=== PATIENT | male | born 1960 | race Caucasian/White ===

== ENCOUNTER 2017-03-14 23:16 | Emergency (ER) | payer MEDICAID ==
[2017-03-14 23:17] VITALS: BMI 30.8
[2017-03-14 23:40] VITALS: RESP 18; TEMP 98
--- NOTE | 2017-03-15 00:37 | ED PDOC ---
Arrival/HPI - General Chief Complaint: GI Problem Time Seen by Provider: 03/14/17 23:56 Historian: Patient, Family - History of Present Illness Narrative History of Present Illness (Text): 03/15/17 00:37 Tacos Matos is a 56 year old male, whose past medical history includes VT and CAD s/p stent placement, who presents to the Emergency department complaining of abdominal cramping. Patient reports associated diarrhea today. Patient states he last ate at 16:00 yesterday. Patient denies any fever, chills, shortness of breath, nausea, vomiting, urinary symptoms, back pain, neck pain, headache, dizziness, or any other complaints. PMD: Dr. Ayala Preboarder: Dr. Leyva Time/Duration: Other (today) Symptom Onset: Gradual Symptom Course: Unchanged Activities at Onset: Light Context: Home Past Medical History - Provider Review Nursing Documentation Reviewed: Yes - Infectious Disease Hx of Infectious Diseases: None - Tetanus Immunization Tetanus Immunization: Unknown - Cardiac Hx Cardiac Disorders: Yes Hx VT: Yes Hx Hypertension: Yes - Pulmonary Hx Respiratory Disorders: No - Neurological Hx Neurological Disorder: No Hx Paralysis: No - HEENT Hx HEENT Disorder: No - Renal Hx Renal Disorder: No - Endocrine/Metabolic Hx Endocrine Disorders: Yes Hx Hypothyroidism: Yes - Hematological/Oncological Hx Blood Disorders: No Hx Blood Transfusions: No Hx Blood Transfusion Reaction: No - Integumentary Hx Dermatological Disorder: No - Musculoskeletal/Rheumatological Hx Musculoskeletal Disorders: No - Gastrointestinal Hx Gastrointestinal Disorders: No - Genitourinary/Gynecological Hx Genitourinary Disorders: No - Psychiatric Hx Psychophysiologic Disorder: No Hx Emotional Abuse: No Hx Physical Abuse: No Hx Substance Use: No - Surgical History Hx Coronary Stent: Yes (1 stent) - Anesthesia Hx Anesthesia: No Hx Anesthesia Reactions: No Hx Malignant Hyperthermia: No - Suicidal Assessment Feels Threatened In Home Enviroment: No Family/Social History - Physician Review Nursing Documentation Reviewed: Yes Family/Social History: Unknown Family HX Smoking Status: Never Smoked Hx Alcohol Use: No Hx Substance Use: No Hx Substance Use Treatment: No Allergies/Home Meds Allergies/Adverse Reactions: Allergies Penicillins Allergy (Verified 03/14/17 23:31) RASH Home Medications: Home Meds Medication Instructions Recorded Confirmed Atorvastatin [Lipitor] 40 mg PO DAILY 10/30/13 03/14/17 Clopidogrel [Plavix] 75 mg PO DAILY 10/30/13 03/14/17 Aspirin [Ecotrin] 81 mg PO DAILY 06/16/15 03/14/17 Citalopram [celEXA] 20 mg PO DAILY 06/16/15 03/14/17 Fenofibrate,Micronized 160 mg PO DAILY 06/16/15 03/14/17 [Fenofibrate] Isosorbide Mononitrate [Imdur] 60 mg PO DAILY 06/16/15 03/14/17 Metoprolol Tartrate [Metoprolol 50 mg PO BID 06/16/15 03/14/17 Tartrate] Omeprazole [Omeprazole] 20 mg PO DAILY 06/16/15 03/14/17 Cholecalciferol [Vitamin D] 50,000 iu PO DAILY 03/14/17 03/14/17 Levothyroxine [Synthroid] 100 mcg PO DAILY 03/14/17 03/14/17 Review of Systems - Physician Review All systems were reviewed & negative as marked: Yes - Review of Systems Constitutional: Normal. absent: Fevers Eyes: Normal ENT: Normal Respiratory: Normal. absent: SOB, Cough Cardiovascular: Normal. absent: Chest Pain Gastrointestinal: Abdominal Pain, Diarrhea. absent: Vomiting Genitourinary Male: Normal. absent: Dysuria, Frequency, Hematuria, Urinary Output Changes Musculoskeletal: Myalgias (+body aches). absent: Back Pain, Neck Pain Skin: Normal. absent: Rash Neurological: Normal Endocrine: Normal Hemo/Lymphatic: Normal Psychiatric: Normal Physical Exam Vital Signs Reviewed: Yes Vital Signs Temp Pulse Resp BP Pulse Ox 03/14/17 23:34 98.0 F 79 18 98/65 L 98 Temperature: Afebrile Blood Pressure: Normal Pulse: Regular Respiratory Rate: Normal Appearance: Positive for: Well-Appearing, Non-Toxic, Comfortable Pain Distress: None Mental Status: Positive for: Alert and Oriented X 3 - Systems Exam Head: Present: Atraumatic, Normocephalic Pupils: Present: PERRL Extroacular Muscles: Present: EOMI Conjunctiva: Present: Normal Mouth: Present: Moist Mucous Membranes Neck: Present: Normal Range of Motion Respiratory/Chest: Present: Clear to Auscultation, Good Air Exchange. No: Respiratory Distress, Accessory Muscle Use Cardiovascular: Present: Regular Rate and Rhythm, Normal S1, S2. No: Murmurs Abdomen: Present: Normal Bowel Sounds. No: Tenderness, Distention, Peritoneal Signs Back: Present: Normal Inspection Upper Extremity: Present: Normal Inspection. No: Cyanosis, Edema Lower Extremity: Present: Normal Inspection. No: Edema Neurological: Present: GCS=15, CN II-XII Intact, Speech Normal Skin: Present: Warm, Dry, Normal Color. No: Rashes Psychiatric: Present: Alert, Oriented x 3, Normal Insight, Normal Concentration Medical Decision Making ED Course and Treatment: 03/15/17 00:37 Impression: 56 year old male complaining of abdominal pain and diarrhea today. Plan: -- EKG -- Chest X-ray -- Labs, cardiac enzymes, lipase -- IV fluids -- Zofran -- Morphine -- Reassess and disposition Progress Notes: 03/15/17 02:13 Reviewed EKG, NSR at [address] bpm[address] Non-specific ST/T wave changes. 03/15/17 02:48 Chest X-ray reviewed, shows no acute processes. 03/15/17 04:40 On re-evaluation, patient feels better and is in no acute distress. I have discussed the results and plan with the patient, who expresses understanding. Patient in agreement with plan to be discharged home. Patient is stable for discharge. Patient was instructed to follow up with physician or return if symptoms worsen or new concerning symptoms arise. - Lab Interpretations Lab Results: 03/15/17 00:55 03/15/17 00:55 Lab Results 03/15/17 00:55: WBC 6.3 D, RBC 5.11, Hgb 14.5, Hct 42.2, MCV 82.6, MCH 28.4, MCHC 34.4, RDW 13.2, Plt Count 225, MPV 8.9 03/15/17 00:55: Sodium 137, Potassium 4.2, Chloride 100, Carbon Dioxide 26, Anion Gap 15, BUN 19, Creatinine 1.2, Est GFR ( Amer) > 60, Est GFR (Non- Af Amer) > 60, Random Glucose 95, Calcium 10.0, Total Bilirubin 0.6, AST 37, ALT 52, Alkaline Phosphatase 45, Lactate Dehydrogenase 422, Total Creatine Kinase 219, Troponin I < 0.01, Total Protein 7.8, Albumin 4.5, Globulin 3.3, Albumin/Globulin Ratio 1.4, Lipase 221 03/15/17 00:55: PT 11.3, INR 0.99, APTT 27.7 I have reviewed the lab results: Yes - RAD Interpretation Radiology Orders: 03/15/17 00:37 CHEST PORTABLE [RAD] Stat Aircraft Dispatcher: ED Physician - EKG Interpretation Interpreted by ED Physician: Yes Type: 12 lead EKG - Medication Orders Current Medication Orders: Sodium Chloride (Sodium Chloride 0.9%) 1,000 mls @ 100 mls/hr IV .Q10H GIOVANNI Last Admin: 03/15/17 01:01 Dose: 100 mls/hr eMAR Start Stop Document 03/15/17 01:01 JO (Rec: 03/15/17 01:01 [id number]) Intravenous Solution Start Date 03/15/17 Start Time 01:01 Discontinued Medications Morphine Sulfate (Morphine) 4 mg IVP STAT STA Stop: 03/15/17 00:39 Last Admin: 03/15/17 01:01 Dose: 4 mg MAR Pain Assessment Document 03/15/17 01:01 GÓMEZ (Rec: 03/15/17 01:01 [id number]) Pain Reassessment Is this a pain reassessment? No Sleep Is patient sleeping during reassessment? No Presence of Pain Presence of Pain Yes Pain Scale Used Pain Scale Used Numeric Location Pain Location Body Site Abdomen Description Intensity of Pain at present 8 IVP Administration Document 03/15/17 01:01 JOSoniya (Rec: 03/15/17 01:01 [id number]) Charges for Administration # of IVP Administrations 1 Ondansetron HCl (Zofran Inj) 4 mg IVP ONCE ONE Stop: 03/15/17 00:39 Last Admin: 03/15/17 01:01 Dose: 4 mg IVP Administration Document 03/15/17 01:01 JO (Rec: 03/15/17 01:01 [id number]) Charges for Administration # of IVP Administrations 1 - PA / NON EMERGENCY SERVICES AMBULANCE DRIVER / Resident Statement MD/DO has reviewed & agrees with the documentation as recorded. - Scribe Statement The provider has reviewed the documentation as recorded by the Scribe AnaL aura Esposito All medical record entries made by the Scribe were at my direction and personally dictated by me. I have reviewed the chart and agree that the record accurately reflects my personal performance of the history, physical exam, medical decision making, and the department course for this patient. I have also personally directed, reviewed, and agree with the discharge instructions and disposition. Disposition/Present on Arrival - Present on Arrival Any Indicators Present on Arrival: No History of DVT/PE: No History of Uncontrolled Diabetes: No Urinary Catheter: No History of Decub. Ulcer: No History Surgical Site Infection Following: None - Disposition Have Diagnosis and Disposition been Completed?: Yes Diagnosis: Gastroenteritis Disposition: HOME/ ROUTINE Disposition Time: 04:42 Patient Plan: Discharge Patient Problems: Current Active Problems Problem Status Onset Gastroenteritis Acute Condition: GOOD Additional Instructions: Drink small amounts of liquids at a time/advance diet slowly/take meds as prescribed/follow up with your doctor this week Prescriptions: Phenobarb/Hyoscy/Atropine/Scop [ Tablet] 16.2 mg PO Q6 PRN #16 tablet PRN Reason: Dyspepsia Forms: [employer] [employer] (Bengali)
[2017-03-15] MEDS ORDERED: Morphine 4 mg/ml ISec IVP STA (00:38)
[2017-03-15] MEDS ORDERED: Sodium Chloride 0.9% 1,000 ML IV SCH (00:45)
[2017-03-15 01:17] LABS: HEMOGLOBIN 14.5 g/dL (14.0-18.0); MEAN CELL VOLUME 82.6 fl (80.0-105.0); MEAN CORPUSCULAR HEMOGLOBIN 28.4 pg (25.0-35.0); MEAN CORPUSCULAR HGB CONC 34.4 g/dl (31.0-37.0); MEAN PLATELET VOLUME 8.9 fl (7.0-11.0); RBC 5.11 10^6/uL (3.5-6.1); RED CELL DISTRIBUTION WIDTH 13.2 % (11.5-14.5); WHITE BLOOD COUNT 6.3 10^3/ul (4.5-11.0)
[2017-03-15 01:18] LABS: ALB/GLOB RATIO 1.4 (1.1-1.8); ALBUMIN 4.5 g/dL (3.0-4.8); ALT/SGPT 52 U/L (7-56); AST/SGOT 37 U/L (17-59); BLOOD UREA NITROGEN 19 mg/dL (7-21); GFR AFRICAN-AMERICAN > 60; GFR NON-AFRICAN AMERICAN > 60; INR 0.99 (0.93-1.08); LIPASE 221 U/L (23-300); PARTIAL THROMBOPLASTIN TIME 27.7 Seconds (25.1-36.5); PROTHROMBIN TIME 11.3 SECONDS (9.4-12.5)
[2017-03-15 01:30] LABS: TROPONIN I < 0.01 ng/mL
[2017-03-15 04:53] VITALS: O2SAT 97
[2017-03-15 04:55] VITALS: BP 120/65; PULSE 70
--- NOTE | 2017-03-15 09:22 | RAD ---
HISTORY: pain COMPARISON: None available. TECHNIQUE: Chest, one view. FINDINGS: Examination limited by habitus and hypoinflation. LUNGS: No focal consolidation. Please note that chest x-ray has limited sensitivity for the detection of pulmonary masses. PLEURA: No significant pleural effusion identified. No definite pneumothorax . CARDIOVASCULAR: The cardiomediastinal silhouette appears within normal limits of size. OSSEOUS STRUCTURES: No acute osseous abnormality identified. VISUALIZED UPPER ABDOMEN: Unremarkable. OTHER FINDINGS: None. IMPRESSION: Hypoinflation.
--- NOTE | 2017-03-15 18:12 | CARD ---
APPROVED REPORT EKG Measurement Heart [id number] <Conclusion> Sinus rhythm with fusion complexes Low voltage QRS Borderline ECG
== END 2017-03-15 04:55 | disposition home or self-care (01) ==
LOC: ED 23:16
DX: K52.9 Noninfective gastroenteritis and colitis, unspecified (principal); I10 Essential (primary) hypertension; E03.9 Hypothyroidism, unspecified; I25.10 Atherosclerotic heart disease of native coronary artery without angina pectoris; I25.2 Old myocardial infarction
CPT/HCPCS: 71045; 80053; 82550; 83615; 83690; 84484; 85027; 85610; 85730; 93005; 96374; 96375; 99284; J2270; J2405; J7040

== ENCOUNTER 2017-07-29 22:25 | Emergency (ER) | payer MEDICAID ==
[2017-07-29 22:46] VITALS: BMI 28.7
--- NOTE | 2017-07-29 22:55 | ED PDOC ---
Arrival/HPI - General Historian: Patient - General Chief Complaint: Flu-like Symptoms Time Seen by Provider: 07/29/17 22:29 - History of Present Illness Narrative History of Present Illness (Text): Patient is a 56 year old male with a past medical history of CAD s/p 1 stent in 2005 who presents to the ED for evaluation and treatment of a 1 day history of fever, body ache, nonproductive cough with associated rib pain, sore throat, and headache. Admits to sick contact at home with similar symptoms. Also admits to recent travel from [facility]. Denies exacerbating and remitting factors. Denies fever, chills, SOB, abdominal pain, nausea, vomiting, diarrhea, constipation, and urinary symptoms. PMD: Dr. Good ([facility]) Past Medical History - Provider Review Nursing Documentation Reviewed: Yes - Travel History Have you recently traveled outside [place] w/in the past 3 mons?: No - Infectious Disease Hx of Infectious Diseases: None - Tetanus Immunization Tetanus Immunization: Unknown - Cardiac Hx Cardiac Disorders: Yes Hx CT: Yes Hx Hypertension: Yes - Pulmonary Hx Respiratory Disorders: No - Neurological Hx Neurological Disorder: No Hx Paralysis: No - HEENT Hx HEENT Disorder: No - Renal Hx Renal Disorder: No - Endocrine/Metabolic Hx Endocrine Disorders: Yes Hx Hypothyroidism: Yes - Hematological/Oncological Hx Blood Disorders: No Hx Blood Transfusions: No Hx Blood Transfusion Reaction: No - Integumentary Hx Dermatological Disorder: No - Musculoskeletal/Rheumatological Hx Musculoskeletal Disorders: No - Gastrointestinal Hx Gastrointestinal Disorders: No - Genitourinary/Gynecological Hx Genitourinary Disorders: No - Psychiatric Hx Psychophysiologic Disorder: No Hx Emotional Abuse: No Hx Physical Abuse: No Hx Substance Use: No - Surgical History Hx Coronary Stent: Yes (1 stent) - Anesthesia Hx Anesthesia: No Hx Anesthesia Reactions: No Hx Malignant Hyperthermia: No - Suicidal Assessment Feels Threatened In Home Enviroment: No Family/Social History - Physician Review Nursing Documentation Reviewed: Yes Family/Social History: Unknown Family HX Smoking Status: Never Smoked Hx Alcohol Use: No Hx Substance Use: No Hx Substance Use Treatment: No Allergies/Home Meds Allergies/Adverse Reactions: Allergies Penicillins Allergy (Verified 03/14/17 23:31) RASH Home Medications: Home Meds Medication Instructions Recorded Confirmed Aspirin [Aspirin Chewable] 81 mg PO DAILY 07/30/17 07/30/17 Atorvastatin [Lipitor] 40 mg PO HS 07/30/17 07/30/17 Citalopram [celeXA] 20 mg PO DAILY 07/30/17 07/30/17 Clopidogrel [Plavix] 75 mg PO DAILY 07/30/17 07/30/17 Fenofibrate [Triglide] 160 mg PO DAILY 07/30/17 07/30/17 Levothyroxine [Synthroid] 100 mcg PO DAILY 07/30/17 07/30/17 Metoprolol Tartrate [Lopressor] 50 mg PO BID 07/30/17 07/30/17 Review of Systems - Physician Review All systems were reviewed & negative as marked: Yes - Review of Systems Constitutional: Normal Eyes: Normal ENT: Normal Respiratory: Cough. absent: SOB Cardiovascular: Normal Gastrointestinal: Normal Genitourinary Male: Normal Musculoskeletal: Normal Skin: Normal Neurological: Normal Endocrine: Normal Hemo/Lymphatic: Normal Psychiatric: Normal Physical Exam Vital Signs Reviewed: Yes Temperature: Febrile Blood Pressure: Normal Pulse: Regular Respiratory Rate: Normal Appearance: Positive for: Well-Appearing, Non-Toxic, Comfortable Pain Distress: None Mental Status: Positive for: Alert and Oriented X 3 - Systems Exam Head: Present: Atraumatic, Normocephalic Pupils: Present: PERRL Extroacular Muscles: Present: EOMI Conjunctiva: Present: Normal Mouth: Present: Moist Mucous Membranes Neck: Present: Normal Range of Motion Respiratory/Chest: Present: Clear to Auscultation, Good Air Exchange. No: Respiratory Distress, Accessory Muscle Use Cardiovascular: Present: Regular Rate and Rhythm, Normal S1, S2. No: Murmurs Abdomen: No: Tenderness, Distention, Peritoneal Signs Back: Present: Normal Inspection Upper Extremity: Present: Normal Inspection. No: Cyanosis, Edema Lower Extremity: Present: Normal Inspection. No: Edema Neurological: Present: GCS=15, CN II-XII Intact, Speech Normal Skin: Present: Warm, Dry, Normal Color. No: Rashes Psychiatric: Present: Alert, Oriented x 3, Normal Insight, Normal Concentration Vital Signs Temp Pulse Resp BP Pulse Ox 07/30/17 01:30 98 07/30/17 01:18 98.3 F 63 20 100/54 L 97 07/29/17 22:46 100.7 F H 85 19 100/67 96 Medical Decision Making ED Course and Treatment: Assessment and Plan: Patient is a 56 year old male with a past medical history of CAD s/p 1 stent in 2005 who presents to the ED for evaluation and treatment of a 1 day history of fever, body ache, nonproductive cough with associated rib pain, sore throat, and headache. URI 07/29/17 23:02 - Tylenol - CXR- no active disease - influenza swab 07/30/17 00:48 - influenza positive - strep negative - tamiflu 07/30/17 01:15 (Rayray Lopez) 07/30/17 03:04 seen with resident, influenza pos, cxr neg. vitals stable. advise outpt fu tamiflu (Eyad Tipton) - Lab Interpretations Lab Results: Lab Results 07/29/17 23:57: Grp A Beta Strep Ag Negative 07/29/17 23:57: Influenza Typ A,B (EIA) Pos for influenza a H - RAD Interpretation Radiology Orders: 07/29/17 23:00 CHEST TWO VIEWS (PA/LAT) [RAD] Stat - Medication Orders Current Medication Orders: Discontinued Medications Acetaminophen (Tylenol 325mg Tab) 650 mg PO ONCE ONE Stop: 07/29/17 23:01 Last Admin: 07/30/17 00:14 Dose: 650 mg Oseltamivir Phosphate (Tamiflu Cap) 75 mg PO STAT STA PRN Reason: Protocol Stop: 07/30/17 00:47 Last Admin: 07/30/17 01:10 Dose: 75 mg Disposition/Present on Arrival - Present on Arrival Any Indicators Present on Arrival: No History of DVT/PE: No History of Uncontrolled Diabetes: No Urinary Catheter: No History of Decub. Ulcer: No History Surgical Site Infection Following: None - Disposition Have Diagnosis and Disposition been Completed?: Yes Disposition Time: 01:16 - Disposition Diagnosis: Influenza Disposition: HOME/ ROUTINE Condition: STABLE Discharge Instructions (ExitCare): Flu, Adult (DC) Additional Instructions: GUSTAVO GORDILLO, thank you for letting us take care of you today. Your provider was Eyad Tipton DO and you were treated for the flu. The emergency medical care you received today was directed at your acute symptoms. If you were prescribed any medication, please fill it and take as directed. It may take several days for your symptoms to resolve. Return to the Emergency Department if your symptoms worsen, do not improve, or if you have any other problems. Please contact your doctor or call one of the physicians/clinics you have been referred to that are listed on the Patient Visit Information form that is included in your discharge packet. Bring any paperwork you were given at discharge with you along with any medications you are taking to your follow up visit. Our treatment cannot replace ongoing medical care by a primary care provider outside of the emergency department. Thank you for allowing the [facility] team to be part of your care today. If you had an X-Ray or CT scan: A Radiologist will review the ED reading if any change in treatment is needed we will contact you. If you had a blood, urine, or wound culture: It will take several days for the results, if any change in treatment is needed we will contact you. If you had an STI test: It will take 48 hours for the results. Please call after 1 week if you have not heard back. Prescriptions: Oseltamivir Phosphate [Tamiflu] 75 mg PO BID 5 Days capsule Referrals: La Ayala MD [Primary Care Provider] - Follow up with primary Forms: [employer] (Beninese)
[2017-07-30 01:19] VITALS: BP 100/54; PULSE 63; RESP 20; TEMP 98.3
[2017-07-30 01:30] VITALS: O2SAT 98
--- NOTE | 2017-07-30 09:10 | RAD ---
HISTORY: pain COMPARISON: 03/15/2017 TECHNIQUE: Chest PA and lateral FINDINGS: LUNGS: No active pulmonary disease. PLEURA: No significant pleural effusion identified. No pneumothorax apparent. CARDIOVASCULAR: Normal. OSSEOUS STRUCTURES: No significant abnormalities. VISUALIZED UPPER ABDOMEN: Normal. OTHER FINDINGS: None. IMPRESSION: No active disease.
== END 2017-07-30 01:30 | disposition home or self-care (01) ==
LOC: ED 22:25
DX: J11.1 Influenza due to unidentified influenza virus with other respiratory manifestations (principal); I10 Essential (primary) hypertension; E03.9 Hypothyroidism, unspecified; I25.10 Atherosclerotic heart disease of native coronary artery without angina pectoris

== ENCOUNTER 2018-06-12 07:10 | Outpatient (CLI) | payer MEDICAID | END 2018-06-12 07:11 | disposition home or self-care (01) | LOC: CARDIO 07:10 | DX: R07.9 Chest pain, unspecified (principal) ==